=== PATIENT | male | born 1945 | race Caucasian/White ===

== ENCOUNTER 2019-07-29 20:37 | Inpatient (IN) | payer MEDICARE, OTHER ==
[~2019-07-29] VITALS: Ht 175.3 cm; Wt 102.3 kg
[2019-07-29] MEDS ORDERED: NITROGLYCERIN/D5W PMX 250 ML IV PRN (20:40)
[2019-07-29] MEDS ORDERED: DILTIAZEM 5 MG/ML, 5ML ONE (20:42)
[2019-07-29] MEDS ORDERED: NITROGLYCERIN/D5W PMX 250 ML ONE (20:42)
[2019-07-29 20:59] LABS: MEAN CORPUSCULAR HEMOGLOBIN 33.3 pg (27.5-34.5); MEAN CORPUSCULAR HGB CONC 32.3 g/dL (33.2-36.2); MEAN CORPUSCULAR VOLUME 103.1 fL (81-97); MEAN PLATELET VOLUME 7.5 fL (7.4-10.4); PLATELET COUNT 480 x10^3/uL (130-400); RED BLOOD COUNT 3.46 x10^6/uL (4.38-5.82); RED CELL DISTRIBUTION WIDTH 16.8 % (9.4-14.8)
[2019-07-29] MEDS ORDERED: FUROSEMIDE 40 MG/4 ML IVPush ONE (21:00)
[2019-07-29] MEDS ORDERED: MORPHINE SULFATE 4 MG/ML, 1ML IVPush PRN (21:00)
[2019-07-29] MEDS ORDERED: FUROSEMIDE 40 MG/4 ML ONE (21:00)
[2019-07-29] MEDS ORDERED: SODIUM CHLORIDE FLUSH 10ML SYR IVF ONE (21:00)
[2019-07-29] MEDS ORDERED: DILTIAZEM 5 MG/ML, 5ML IV ONE (21:00)
[2019-07-29] MEDS ORDERED: MAGN400T36 PO (21:07)
[2019-07-29] MEDS ORDERED: METF500T17 PO (21:07)
[2019-07-29] MEDS ORDERED: POTA10TA31 PO (21:07)
[2019-07-29] MEDS ORDERED: ALLO300T PO (21:07)
[2019-07-29] MEDS ORDERED: CYAN100028 PO (21:07)
[2019-07-29] MEDS ORDERED: APIX5TAB PO (21:07)
[2019-07-29] MEDS ORDERED: VERA120T13 PO (21:07)
[2019-07-29] MEDS ORDERED: LISI-167 PO (21:07)
[2019-07-29] MEDS ORDERED: GABA600T7 PO (21:07)
[2019-07-29] MEDS ORDERED: SIMV10TA18 PO (21:07)
[2019-07-29] MEDS ORDERED: PANT40TA5 PO (21:07)
[2019-07-29] MEDS ORDERED: FURO20TA3 PO (21:07)
[2019-07-29] MEDS ORDERED: DICLOFENAC (21:07)
[2019-07-29] MEDS ORDERED: CHOL200040 PO (21:07)
[2019-07-29] MEDS ORDERED: MULT-658 PO (21:07)
[2019-07-29] MEDS ORDERED: METO25TA35 PO (21:07)
[2019-07-29 21:09] LABS: INTERNATIONAL NORMALIZED RATIO 1.12 (0.93-1.1); PROTHROMBIN TIME 11.9 Seconds (9.6-11.5)
[2019-07-29 21:11] LABS: ALANINE AMINOTRANSFERASE 10 U/L (12-78); ALBUMIN 2.4 g/dL (3.4-5.0); ANION GAP 8 mmol/L (5-15); CHLORIDE 108 mmol/L (98-107); CREATININE 1.26 mg/dL (0.7-1.3)
[2019-07-29 21:15] LABS: ALKALINE PHOSPHATASE 75 U/L (45-117); BILIRUBIN,TOTAL 0.2 mg/dL (0.2-1.0); T4 (THYROXINE) 5.8 mcg/dL (4.5-12.1); TOTAL PROTEIN 9.9 g/dL (6.4-8.2)
[2019-07-29 21:16] LABS: MD YES
[2019-07-29 21:17] LABS: BAND#(MANUAL) 0.24 x10^3/uL; BANDS%(MANUAL) 1 % (0-7); EOS#(MANUAL) 0.48 x10^3/uL (0.0-0.4); EOS% (MANUAL) 2 % (1-7); LYMPH#(MANUAL) 4.54 x10^3/uL (1-3.4); LYMPHS% (MANUAL) 19 % (22-44); METAMYELOCYTES# (MANUAL) 0.24 x10^3/uL (0-0); METAMYELOCYTES% (MANUAL) 1 % (0-1); MONOS#(MANUAL) 1.43 x10^3/uL (0.3-2.7); MONOS% (MANUAL) 6 % (2-9); NRBC % (MANUAL) 1 % (0-1); SEG#(MANUAL) 16.97 x10^3/uL (1.8-6.8); SEGS% (MANUAL) 71 % (42-75)
[2019-07-29 21:18] LABS: <PLATELET ESTIMATE> INCREASED; <PLT MORPHOLOGY> NORMAL PLT MORPH; <RBC MORPHOLOGY> NORMAL
[2019-07-29] MEDS ORDERED: CEFTRIAXONE PMX 1GM/50ML 50 ML ONE (21:25)
[2019-07-29] MEDS ORDERED: CEFTRIAXONE PMX 1GM/50ML 50 ML IVPB ONE (21:30)
[2019-07-29] MEDS ORDERED: AZITHROMYCIN 500 MG in SODIUM CHLORIDE 0.9% 250 ML IVPB ONE (21:30)
[2019-07-29] MEDS ORDERED: BISACODYL 10 MG SUPP PR PRN (22:30)
[2019-07-29] MEDS ORDERED: POLYETHYLENE GLYCOL 17 GM PACKET PO PRN (22:30)
[2019-07-29] MEDS ORDERED: ONDANSETRON ODT 4 MG PO PRN (22:30)
[2019-07-29] MEDS ORDERED: MAGNESIUM SULFATE PMX 4GM/100M 100 ML IV ONE (22:30)
[2019-07-29] MEDS ORDERED: GUAIFENESIN/DM 200-20MG, 10ML UDC PO PRN (22:30)
[2019-07-29] MEDS ORDERED: hydrALAzine 20 MG/ML, 1ML IVPush PRN (22:30)
[2019-07-29] MEDS ORDERED: NITROGLYCERIN 0.4 MG BOTTLE (25 TABS) SL PRN (22:30)
[2019-07-29 22:53] VITALS: BP 143/89
[2019-07-29] MEDS ORDERED: MAGN64TA7 PO (23:57)
[2019-07-29] MEDS ORDERED: PANT40TA3 PO (23:57)
[2019-07-29] MEDS ORDERED: VERA120T8 PO (23:57)
[2019-07-29] MEDS ORDERED: DICL100G25 TP (23:57)
[2019-07-30] MEDS: SODIUM CHLORIDE FLUSH 10ML SYR IVF SCH ×3 (00:53→21:36)
[2019-07-30 01:31] LABS: MICROSCOPIC AUTO
[2019-07-30 01:46] LABS: CULTURE INDICATED? NO
[2019-07-30 03:30] LABS: MEAN CORPUSCULAR HEMOGLOBIN 33.4 pg (27.5-34.5); MEAN CORPUSCULAR HGB CONC 32.8 g/dL (33.2-36.2); MEAN CORPUSCULAR VOLUME 101.8 fL (81-97); MEAN PLATELET VOLUME 7.5 fL (7.4-10.4); PLATELET COUNT 343 x10^3/uL (130-400); RED CELL DISTRIBUTION WIDTH 16.5 % (9.4-14.8)
[2019-07-30 03:42] LABS: ALANINE AMINOTRANSFERASE 10 U/L (12-78); ALBUMIN 2.1 g/dL (3.4-5.0); ANION GAP 8 mmol/L (5-15); CHLORIDE 108 mmol/L (98-107); MD YES
[2019-07-30 03:43] LABS: BAND#(MANUAL) 0.34 x10^3/uL; BANDS%(MANUAL) 2 % (0-7); LYMPH#(MANUAL) 2.92 x10^3/uL (1-3.4); LYMPHS% (MANUAL) 17 % (22-44); MONOS#(MANUAL) 0.34 x10^3/uL (0.3-2.7); MONOS% (MANUAL) 2 % (2-9); SEG#(MANUAL) 13.59 x10^3/uL (1.8-6.8); SEGS% (MANUAL) 79 % (42-75)
[2019-07-30 03:44] LABS: ANISOCYTOSIS 1+; OVALOCYTES 1+
[2019-07-30 03:45] LABS: <PLATELET ESTIMATE> ADEQUATE; <PLT MORPHOLOGY> NORMAL PLT MORPH
[2019-07-30 03:47] LABS: ALKALINE PHOSPHATASE 62 U/L (45-117); BILIRUBIN,TOTAL 0.3 mg/dL (0.2-1.0); CREATININE 1.12 mg/dL (0.7-1.3); TOTAL PROTEIN 8.5 g/dL (6.4-8.2)
[2019-07-30] MEDS: ACETAMINOPHEN 325 MG TABLET PO PRN ×2 (04:10→16:21)
[2019-07-30 04:49] VITALS: BP 155/72
[2019-07-30 07:10] VITALS: BP 148/79
[2019-07-30] MEDS ORDERED: APIXABAN 5 MG TABLET PO SCH (09:00)
[2019-07-30] MEDS ORDERED: LISINOPRIL 10 MG TABLET PO SCH (09:00)
[2019-07-30] MEDS: SENNA/DOCUSATE TABLET PO SCH (09:00)
[2019-07-30] MEDS ORDERED: metFORMIN 500 MG TABLET PO SCH (09:00)
[2019-07-30] MEDS: FUROSEMIDE 40 MG/4 ML IV SCH ×2 (09:12→16:21)
[2019-07-30] MEDS: ALLOPURINOL 300 MG TABLET PO SCH (09:13)
[2019-07-30] MEDS: GABAPENTIN 300 MG CAPSULE PO SCH ×3 (09:13→21:36)
[2019-07-30] MEDS: MAGNESIUM CHLORIDE 64 MG TABLET.DR PO SCH ×2 (09:13→21:36)
[2019-07-30] MEDS: CHOLECALCIFEROL 1,000 UNIT TABLET PO SCH (09:15)
[2019-07-30] MEDS: CYANOCOBALAMIN 1,000 MCG TABLET PO SCH (09:15)
[2019-07-30] MEDS: ASPIRIN 81 MG TABLET EC PO SCH (09:15)
[2019-07-30] MEDS: METOPROLOL TARTRATE 25 MG TAB PO SCH ×2 (09:16→21:35)
[2019-07-30] MEDS: POTASSIUM CHLORIDE 20 MEQ TAB.ER.PRT PO SCH (09:16)
[2019-07-30] MEDS: VERAPAMIL 120MG TABLET PO SCH ×2 (09:16→21:36)
[2019-07-30] MEDS: PANTOPROZOLE 40MG TABLET PO SCH (09:16)
[2019-07-30] MEDS: MULTIVITAMIN 1 TABLET PO SCH (09:16)
[2019-07-30] MEDS ORDERED: MAGNESIUM SULFATE PMX 2GM/50ML 50 ML IV ONE (10:30)
[2019-07-30] MEDS ORDERED: HEPARIN 25,000 UNITS/250ML PMX 250 ML IV PRN (11:00)
[2019-07-30] MEDS ORDERED: HEPARIN 5,000 UNITS/ML, 1ML IV ONE ×2 (11:00)
[2019-07-30] MEDS ORDERED: HEPARIN 5,000 UNITS/ML, 1ML IV PRN (11:00)
[2019-07-30] MEDS: HEPARIN 25,000 UNITS/250ML PMX 250 ML IV PRN (11:39)
[2019-07-30 12:58] VITALS: BP 138/66
[2019-07-30] MEDS: HEPARIN 5,000 UNITS/ML, 1ML IV PRN (18:18)
[2019-07-30 19:13] VITALS: BP 147/70
[2019-07-30] MEDS ORDERED: SIMVASTATIN 10 MG TABLET PO SCH (21:00)
[2019-07-30 21:30] VITALS: BP 161/72
[2019-07-30] MEDS: ATORVASTATIN 80 MG TABLET PO SCH (21:35)
[2019-07-30] MEDS: LISINOPRIL 10 MG TABLET PO SCH (21:35)
[2019-07-30] MEDS: CEFTRIAXONE PMX 1GM/50ML 50 ML IV SCH (21:36)
[2019-07-30] MEDS: AZITHROMYCIN 500 MG in SODIUM CHLORIDE 0.9% 250 ML IV SCH (23:39)
[2019-07-31 00:35] VITALS: BP 136/72
[2019-07-31] MEDS: HEPARIN 5,000 UNITS/ML, 1ML IV PRN ×3 (01:16→18:07)
[2019-07-31 07:25] VITALS: BP 157/78
[2019-07-31] MEDS ORDERED: MAGNESIUM SULFATE PMX 2GM/50ML 50 ML IV ONE (08:30)
[2019-07-31 08:31] LABS: MEAN CORPUSCULAR HEMOGLOBIN 33.5 pg (27.5-34.5); MEAN CORPUSCULAR HGB CONC 32.5 g/dL (33.2-36.2); MEAN CORPUSCULAR VOLUME 103.1 fL (81-97); MEAN PLATELET VOLUME 8.1 fL (7.4-10.4); PLATELET COUNT 343 x10^3/uL (130-400); RED CELL DISTRIBUTION WIDTH 16.5 % (9.4-14.8)
[2019-07-31 08:33] LABS: ANION GAP 7 mmol/L (5-15); CALCIUM 8.6 mg/dL (8.5-10.1); CHLORIDE 106 mmol/L (98-107); CREATININE 1.01 mg/dL (0.7-1.3)
[2019-07-31] MEDS: FUROSEMIDE 40 MG/4 ML IV SCH ×2 (08:42→18:07)
[2019-07-31 08:45] LABS: BASOPHILS # (AUTO) 0.08 x10^3/uL (0-0.1); BASOPHILS % (AUTO) 1 % (0-1); EOSINOPHILS # (AUTO) 0.25 x10^3/uL (0-0.4); EOSINOPHILS % (AUTO) 2 % (1-7); LYMPHOCYTES % (AUTO) 25 % (22-44); MD SCAN; MONOCYTES # (AUTO) 0.87 x10^3/uL (0.2-0.8); MONOCYTES % (AUTO) 7 % (2-9); NEUTROPHILS # (AUTO) 7.94 x10^3/uL (1.8-6.8); NEUTROPHILS % (AUTO) 65 % (42-75)
[2019-07-31] MEDS: PANTOPROZOLE 40MG TABLET PO SCH (08:47)
[2019-07-31] MEDS: POTASSIUM CHLORIDE 20 MEQ TAB.ER.PRT PO SCH (08:47)
[2019-07-31] MEDS: ASPIRIN 81 MG TABLET EC PO SCH (08:48)
[2019-07-31] MEDS: CHOLECALCIFEROL 1,000 UNIT TABLET PO SCH (08:48)
[2019-07-31] MEDS: LISINOPRIL 10 MG TABLET PO SCH (08:48)
[2019-07-31] MEDS: GABAPENTIN 300 MG CAPSULE PO SCH ×3 (08:48→21:00)
[2019-07-31] MEDS: CYANOCOBALAMIN 1,000 MCG TABLET PO SCH (08:48)
[2019-07-31] MEDS: MULTIVITAMIN 1 TABLET PO SCH (08:48)
[2019-07-31] MEDS: METOPROLOL TARTRATE 25 MG TAB PO SCH (08:48)
[2019-07-31] MEDS: VERAPAMIL 120MG TABLET PO SCH (08:48)
[2019-07-31] MEDS: ALLOPURINOL 300 MG TABLET PO SCH (08:48)
[2019-07-31] MEDS: SODIUM CHLORIDE FLUSH 10ML SYR IVF SCH ×2 (08:49→23:26)
[2019-07-31] MEDS: SODIUM CHLORIDE 0.9% 1,000 ML IV SCH ×4 (08:49→23:28)
[2019-07-31] MEDS: HEPARIN 25,000 UNITS/250ML PMX 250 ML IV PRN (08:57)
[2019-07-31] MEDS: MAGNESIUM CHLORIDE 64 MG TABLET.DR PO SCH ×2 (09:00→21:00)
[2019-07-31] MEDS: SENNA/DOCUSATE TABLET PO SCH (09:00)
[2019-07-31] MEDS: ACETAMINOPHEN 325 MG TABLET PO PRN (12:02)
[2019-07-31 13:09] VITALS: BP 149/74
[2019-07-31] MEDS ORDERED: MIDAZOLAM 1 MG/ML, 5ML ONE (13:58)
[2019-07-31] MEDS ORDERED: FENTANYL PF 100 MCG/2ML ONE (13:58)
[2019-07-31] MEDS ORDERED: HEPARIN 1,000 UNITS/ML, 10ML ONE (13:58)
[2019-07-31] MEDS ORDERED: LIDOCAINE-MPF 1%, 5ML ONE (13:58)
[2019-07-31] MEDS ORDERED: VERAPAMIL 2.5 MG/ML, 2ML ONE (13:58)
[2019-07-31] MEDS ORDERED: BIVALIRUDIN 250 MG ONE (13:59)
[2019-07-31] MEDS: CARVEDILOL 12.5 MG TABLET PO SCH (18:07)
[2019-07-31 18:58] VITALS: BP 158/66
[2019-07-31] MEDS ORDERED: MAG SULFATE ONE (20:18)
[2019-07-31] MEDS ORDERED: CODE BLUE RESPONSE XX ONE (20:18)
[2019-07-31] MEDS ORDERED: SUCCINYLCHOLINE 20 MG/ML, 10ML ONE (20:18)
[2019-07-31] MEDS ORDERED: ETOMIDATE 20 MG/10 ML ONE (20:18)
[2019-07-31] MEDS ORDERED: AMIODARONE 50 MG/ML, 3ML ONE (20:18)
[2019-07-31] MEDS ORDERED: PROPOFOL 100 ML IV PRN ×2 (20:30→20:56)
[2019-07-31] MEDS ORDERED: AMIODARONE 450 MG in DEXTROSE 5% 241 ML IV PRN (20:30)
[2019-07-31] MEDS ORDERED: AMIODARONE 150 MG in DEXTROSE 5% 100 ML IV ONE (20:30)
[2019-07-31] MEDS: ATORVASTATIN 80 MG TABLET PO SCH (21:00)
[2019-07-31] MEDS ORDERED: FENTANYL PF 100 MCG/2ML IVPush PRN (21:00)
[2019-07-31] MEDS ORDERED: LISINOPRIL 20 MG TABLET PO SCH (21:00)
[2019-07-31] MEDS ORDERED: LIDOCAINE-MPF 1%, 2ML ENDO PRN (21:00)
[2019-07-31] MEDS ORDERED: PHARMACY MAY ADJ FOR RENAL FX MC SCH (21:00)
[2019-08-01] MEDS: CEFTRIAXONE PMX 1GM/50ML 50 ML IV SCH ×2 (00:31→21:34)
[2019-08-01] MEDS ORDERED: DOPAMINE/D5W PMX 250 ML ONE (00:53)
[2019-08-01] MEDS ORDERED: DOPAMINE/D5W PMX 250 ML IV PRN (01:00)
[2019-08-01] MEDS: AZITHROMYCIN 500 MG in SODIUM CHLORIDE 0.9% 250 ML IV SCH ×2 (01:19→22:05)
[2019-08-01] MEDS: HEPARIN 5,000 UNITS/ML, 1ML IV PRN ×3 (02:59→16:41)
[2019-08-01 04:45] LABS: BASOPHILS # (AUTO) 0.07 x10^3/uL (0-0.1); BASOPHILS % (AUTO) 1 % (0-1); EOSINOPHILS # (AUTO) 0.26 x10^3/uL (0-0.4); EOSINOPHILS % (AUTO) 2 % (1-7); LYMPHOCYTES # (AUTO) 2.24 x10^3/uL (1-3.4); LYMPHOCYTES % (AUTO) 17 % (22-44); MD NO; MEAN CORPUSCULAR HEMOGLOBIN 33.2 pg (27.5-34.5); MEAN CORPUSCULAR HGB CONC 32.5 g/dL (33.2-36.2); MEAN CORPUSCULAR VOLUME 102.3 fL (81-97); MEAN PLATELET VOLUME 7.5 fL (7.4-10.4); MONOCYTES # (AUTO) 0.91 x10^3/uL (0.2-0.8); MONOCYTES % (AUTO) 7 % (2-9); NEUTROPHILS # (AUTO) 10.09 x10^3/uL (1.8-6.8); NEUTROPHILS % (AUTO) 74 % (42-75); PLATELET COUNT 338 x10^3/uL (130-400); RED CELL DISTRIBUTION WIDTH 16.7 % (9.4-14.8)
[2019-08-01 04:53] LABS: ANION GAP 5 mmol/L (5-15); CALCIUM 8.6 mg/dL (8.5-10.1); CHLORIDE 109 mmol/L (98-107); CREATININE 1.23 mg/dL (0.7-1.3)
[2019-08-01] MEDS: CARVEDILOL 12.5 MG TABLET PO SCH (05:48)
[2019-08-01] MEDS: SODIUM CHLORIDE 0.9% 1,000 ML IV SCH ×4 (07:02→23:02)
[2019-08-01] MEDS: HEPARIN 25,000 UNITS/250ML PMX 250 ML IV PRN ×2 (07:06→22:13)
[2019-08-01] MEDS ORDERED: FUROSEMIDE 20 MG TABLET PO SCH (08:00)
[2019-08-01] MEDS: MAGNESIUM CHLORIDE 64 MG TABLET.DR PO SCH ×2 (08:04→21:34)
[2019-08-01] MEDS: SODIUM CHLORIDE FLUSH 10ML SYR IVF SCH ×3 (08:35→21:34)
[2019-08-01] MEDS ORDERED: FUROSEMIDE 20 MG/2 ML ONE (09:14)
[2019-08-01] MEDS: ACETAMINOPHEN 325 MG TABLET PO PRN ×2 (09:21→15:17)
[2019-08-01] MEDS ORDERED: FUROSEMIDE 20 MG/2 ML IVPush ONE (09:30)
[2019-08-01] MEDS: ASPIRIN 81 MG TABLET EC PO SCH (10:02)
[2019-08-01] MEDS: SENNA/DOCUSATE TABLET PO SCH (10:02)
[2019-08-01] MEDS: ALLOPURINOL 300 MG TABLET PO SCH (10:02)
[2019-08-01] MEDS: MULTIVITAMIN 1 TABLET PO SCH (10:02)
[2019-08-01] MEDS: GABAPENTIN 300 MG CAPSULE PO SCH ×3 (10:02→21:34)
[2019-08-01] MEDS: CYANOCOBALAMIN 1,000 MCG TABLET PO SCH (10:02)
[2019-08-01] MEDS: CHOLECALCIFEROL 1,000 UNIT TABLET PO SCH (10:02)
[2019-08-01] MEDS: POTASSIUM CHLORIDE 20 MEQ TAB.ER.PRT PO SCH (10:02)
[2019-08-01] MEDS: PANTOPROZOLE 40MG TABLET PO SCH (10:02)
[2019-08-01] MEDS ORDERED: INSULIN LISPRO 100 UNITS/ML, PEN SQ-INSULIN SCH (17:00)
[2019-08-01] MEDS ORDERED: CHLORHEXIDINE 15 ML UDC MM PRN (17:00)
[2019-08-01 17:51] LABS: BASOPHILS % (AUTO) 1 % (0-1); EOSINOPHILS # (AUTO) 0.22 x10^3/uL (0-0.4); EOSINOPHILS % (AUTO) 2 % (1-7); LYMPHOCYTES # (AUTO) 2.32 x10^3/uL (1-3.4); LYMPHOCYTES % (AUTO) 21 % (22-44); MD NO; MEAN CORPUSCULAR HEMOGLOBIN 33.6 pg (27.5-34.5); MEAN CORPUSCULAR HGB CONC 32.9 g/dL (33.2-36.2); MEAN PLATELET VOLUME 7.4 fL (7.4-10.4); MONOCYTES % (AUTO) 7 % (2-9); NEUTROPHILS # (AUTO) 7.53 x10^3/uL (1.8-6.8); NEUTROPHILS % (AUTO) 69 % (42-75); PLATELET COUNT 308 x10^3/uL (130-400); RED BLOOD COUNT 2.65 x10^6/uL (4.38-5.82); RED CELL DISTRIBUTION WIDTH 16.6 % (9.4-14.8)
[2019-08-01 18:03] LABS: ALANINE AMINOTRANSFERASE 14 U/L (12-78); ALBUMIN 1.8 g/dL (3.4-5.0); ANION GAP 6 mmol/L (5-15); CALCIUM 8.3 mg/dL (8.5-10.1); CHLORIDE 110 mmol/L (98-107); CREATININE 1.21 mg/dL (0.7-1.3)
[2019-08-01 18:05] LABS: INTERNATIONAL NORMALIZED RATIO 1.07 (0.93-1.1); PROTHROMBIN TIME 11.4 Seconds (9.6-11.5)
[2019-08-01 18:06] LABS: ALKALINE PHOSPHATASE 69 U/L (45-117); BILIRUBIN,TOTAL 0.2 mg/dL (0.2-1.0); TOTAL PROTEIN 7.6 g/dL (6.4-8.2)
[2019-08-01 18:57] LABS: MICROSCOPIC INDICATED
[2019-08-01] MEDS ORDERED: MUPIROCIN OINT 2%, 22GM TP SCH (21:00)
[2019-08-01] MEDS: ATORVASTATIN 80 MG TABLET PO SCH (21:34)
[2019-08-02] MEDS: SODIUM CHLORIDE 0.9% 1,000 ML IV SCH ×2 (02:00→05:04)
[2019-08-02] MEDS: ACETAMINOPHEN 325 MG TABLET PO PRN (04:45)
[2019-08-02] MEDS ORDERED: METOPROLOL TARTRATE 25 MG TAB PO ONE (05:00)
[2019-08-02 05:09] LABS: BASOPHILS # (AUTO) 0.05 x10^3/uL (0-0.1); BASOPHILS % (AUTO) 1 % (0-1); EOSINOPHILS # (AUTO) 0.27 x10^3/uL (0-0.4); EOSINOPHILS % (AUTO) 3 % (1-7); LYMPHOCYTES # (AUTO) 2.31 x10^3/uL (1-3.4); LYMPHOCYTES % (AUTO) 23 % (22-44); MD NO; MEAN CORPUSCULAR HEMOGLOBIN 33.5 pg (27.5-34.5); MEAN CORPUSCULAR HGB CONC 32.6 g/dL (33.2-36.2); MEAN CORPUSCULAR VOLUME 102.8 fL (81-97); MEAN PLATELET VOLUME 7.3 fL (7.4-10.4); MONOCYTES % (AUTO) 8 % (2-9); NEUTROPHILS # (AUTO) 6.79 x10^3/uL (1.8-6.8); NEUTROPHILS % (AUTO) 67 % (42-75); PLATELET COUNT 303 x10^3/uL (130-400); RED CELL DISTRIBUTION WIDTH 16.4 % (9.4-14.8)
[2019-08-02 05:17] LABS: ALBUMIN 1.8 g/dL (3.4-5.0); ANION GAP 3 mmol/L (5-15); CALCIUM 8.6 mg/dL (8.5-10.1); CHLORIDE 112 mmol/L (98-107)
[2019-08-02 05:20] LABS: ALANINE AMINOTRANSFERASE 15 U/L (12-78); ALKALINE PHOSPHATASE 63 U/L (45-117); BILIRUBIN,TOTAL 0.4 mg/dL (0.2-1.0); TOTAL PROTEIN 7.7 g/dL (6.4-8.2)
[2019-08-02] MEDS ORDERED: PAPAVERINE 30 MG/ML, 2ML ONE (06:53)
[2019-08-02] MEDS ORDERED: HEPARIN 1,000 UNITS/ML, 10ML ONE (06:53)
[2019-08-02] MEDS ORDERED: ALBUMIN HUMAN 5% 500 ML IV PRN (07:30)
[2019-08-02] MEDS ORDERED: EPINEPHRINE 5 MG in SODIUM CHLORIDE 0.9% 245 ML IV PRN ×2 (07:30→13:00)
[2019-08-02] MEDS ORDERED: MANNITOL PMX 20% 500 ML IVPB PRN (07:30)
[2019-08-02] MEDS ORDERED: DEXMEDETOMIDINE 200 MCG in SODIUM CHLORIDE 0.9% 48 ML IV PRN (07:30)
[2019-08-02] MEDS ORDERED: VANCOMYCIN 1,600 MG in SODIUM CHLORIDE 0.9% 250 ML IVPB PRN (07:30)
[2019-08-02] MEDS ORDERED: CEFUROXIME 1.5 GM in SODIUM CHLORIDE 0.9% 50 ML IVPB PRN (07:30)
[2019-08-02] MEDS ORDERED: PHENYLEPHRINE 50 MG in SODIUM CHLORIDE 0.9% 245 ML IV PRN ×2 (07:30→13:00)
[2019-08-02] MEDS ORDERED: POTASSIUM CHLORIDE 80 MEQ, SODIUM BICARBONATE 8.4% 10 MEQ, MAGNESIUM SULFATE 0.5 GM, LI... IV PRN (07:30)
[2019-08-02] MEDS ORDERED: REGULAR INSULIN 100 UNITS in SODIUM CHLORIDE 0.9% 99 ML IV PRN ×2 (07:30→13:00)
[2019-08-02] MEDS: POTASSIUM CHLORIDE 20 MEQ TAB.ER.PRT PO SCH (08:00)
[2019-08-02] MEDS ORDERED: MIDAZOLAM 10MG/2 ML ONE (08:30)
[2019-08-02] MEDS ORDERED: FENTANYL PF 250 MCG/5ML ONE ×4 (08:30→08:31)
[2019-08-02] MEDS ORDERED: AMINOCAPROIC ACID 250 MG/ML, 20ML ONE ×2 (08:32→08:33)
[2019-08-02] MEDS ORDERED: PROPOFOL 10 MG/ML, 20ML ONE (08:35)
[2019-08-02] MEDS ORDERED: ROCURONIUM 10MG/ML,5ML ONE ×3 (08:51→12:28)
[2019-08-02] MEDS ORDERED: EPINEPHRINE 1 MG/ML, 1ML ONE (08:51)
[2019-08-02] MEDS ORDERED: CALCIUM CHLORIDE 10%, 10ML SYR ONE (08:51)
[2019-08-02] MEDS ORDERED: PHENYLEPHRINE 10 MG/ML ONE (08:51)
[2019-08-02] MEDS: SODIUM CHLORIDE FLUSH 10ML SYR IVF SCH ×3 (08:54→20:48)
[2019-08-02] MEDS: GABAPENTIN 300 MG CAPSULE PO SCH (08:54)
[2019-08-02] MEDS: ASPIRIN 81 MG TABLET EC PO SCH (08:54)
[2019-08-02] MEDS: PANTOPROZOLE 40MG TABLET PO SCH (08:55)
[2019-08-02] MEDS: CHOLECALCIFEROL 1,000 UNIT TABLET PO SCH (08:55)
[2019-08-02] MEDS: CYANOCOBALAMIN 1,000 MCG TABLET PO SCH (08:55)
[2019-08-02] MEDS: MULTIVITAMIN 1 TABLET PO SCH (08:55)
[2019-08-02] MEDS: ALLOPURINOL 300 MG TABLET PO SCH (08:55)
[2019-08-02] MEDS: SENNA/DOCUSATE TABLET PO SCH (08:55)
[2019-08-02] MEDS: MAGNESIUM CHLORIDE 64 MG TABLET.DR PO SCH (08:55)
[2019-08-02] MEDS: DOCUSATE 100 MG CAPSULE PO SCH ×2 (09:00→20:50)
[2019-08-02] MEDS ORDERED: CYANOCOBALAMIN 1,000 MCG TABLET PO SCH (09:00)
[2019-08-02] MEDS ORDERED: PAPAVERINE 30 MG/ML, 2ML IV ONE (10:09)
[2019-08-02] MEDS ORDERED: HEPARIN 1,000 UNITS/ML, 10ML IV ONE (10:10)
[2019-08-02] MEDS ORDERED: PROTAMINE SULFATE 10 MG/ML, 25ML ONE (12:10)
[2019-08-02] MEDS ORDERED: AMIODARONE 50 MG/ML, 3ML ONE ×3 (12:36→13:33)
[2019-08-02] MEDS ORDERED: HYDROcodone/APAP 5/325 TABLET PO PRN (13:00)
[2019-08-02] MEDS ORDERED: MIDAZOLAM 1 MG/ML, 5ML IVPush PRN (13:00)
[2019-08-02] MEDS ORDERED: BISACODYL 5 MG EC TABLET PO PRN (13:00)
[2019-08-02] MEDS ORDERED: VASOPRESSIN 20 UNIT in SODIUM CHLORIDE 0.9% 99 ML IV PRN (13:00)
[2019-08-02] MEDS ORDERED: DEXTROSE 50%, 50ML SYRINGE IVPush PRN (13:00)
[2019-08-02] MEDS ORDERED: INSULIN REGULAR 100 UNITS/ML, 3ML VIAL IVPush PRN (13:00)
[2019-08-02] MEDS ORDERED: DOBUTAMINE 250 MG in SODIUM CHLORIDE 0.9% 230 ML IV PRN (13:00)
[2019-08-02] MEDS ORDERED: SODIUM BICARB 8.4%, 50ML SYRINGE IV PRN (13:00)
[2019-08-02] MEDS ORDERED: NITROGLYCERIN/D5W PMX 250 ML IV PRN (13:00)
[2019-08-02] MEDS ORDERED: ACETAMINOPHEN 650 MG SUPP PR PRN (13:00)
[2019-08-02] MEDS ORDERED: PROCHLORPERAZINE 5 MG/ML, 2ML IVPush PRN (13:00)
[2019-08-02] MEDS ORDERED: BISACODYL 10 MG SUPP PR PRN (13:00)
[2019-08-02] MEDS ORDERED: OXYcodone IR 5MG TABLET PO PRN (13:00)
[2019-08-02] MEDS ORDERED: LACTATED RINGERS 1,000 ML IV PRN (13:00)
[2019-08-02] MEDS ORDERED: DEXTROSE 4 GM TAB.CHEW PO PRN (13:00)
[2019-08-02] MEDS ORDERED: GLUCAGON 1 MG IM PRN (13:00)
[2019-08-02] MEDS ORDERED: SODIUM CHLORIDE 0.9% 1,000 ML IV PRN (13:00)
[2019-08-02] MEDS ORDERED: ONDANSETRON 2MG/ML, 2ML IVPush PRN (13:00)
[2019-08-02] MEDS ORDERED: SODIUM BICARB 8.4%, 50ML SYRINGE ONE ×2 (13:48)
[2019-08-02] MEDS: KSCALE TO 4.5 IV SCH ×2 (14:00→20:00)
[2019-08-02 14:47] LABS: GLUCOSE BY BLOOD GAS ANALYZER 144 mg/dL (70-110); HEMOGLOBIN BY BLOOD GAS ANALYZ 10.6 g/dL (14.0-18.0); POTASSIUM BY BLOOD GAS ANALYZR 3.7 mmol/L (3.6-5.5)
[2019-08-02] MEDS ORDERED: SODIUM BICARBONATE 1 MEQ/ML, 50ML VIAL ONE (15:01)
[2019-08-02] MEDS ORDERED: LIDOCAINE-MPF 2% ,5ML ONE (15:02)
[2019-08-02] MEDS ORDERED: HEPARIN 1,000 UNITS/ML, 30ML ONE (15:02)
[2019-08-02] MEDS ORDERED: methylPREDNISolone SOD SUCC 125 MG/2 ML ONE (15:02)
[2019-08-02] MEDS ORDERED: ALBUMIN HUMAN 25% 50 ML ONE (15:03)
[2019-08-02] MEDS: MAGNESIUM SULFATE 1 GM in SODIUM CHLORIDE 0.9% 100 ML IVPB SCH (15:12)
[2019-08-02] MEDS: MORPHINE SULFATE 4 MG/ML, 1ML IVPush PRN ×4 (15:13→22:17)
[2019-08-02] MEDS: DEXMEDETOMIDINE 200 MCG in SODIUM CHLORIDE 0.9% 48 ML IV PRN ×4 (15:18→23:32)
[2019-08-02] MEDS: INSULIN LISPRO 100 UNITS/ML, PEN SQ-INSULIN SCH ×2 (16:00→20:50)
[2019-08-02] MEDS ORDERED: POTASSIUM CHLORIDE PMX 100 ML IV ONE (16:30)
[2019-08-02] MEDS ORDERED: AMIODARONE 450 MG in DEXTROSE 5% 241 ML IV ONE (18:27)
[2019-08-02] MEDS ORDERED: FILTER 0.22 MICRON IV PRN (19:00)
[2019-08-02] MEDS: AMIODARONE 450 MG in DEXTROSE 5% 241 ML IV SCH (19:14)
[2019-08-02] MEDS ORDERED: CALCIUM CHLORIDE 10%, 10ML SYR IVPush ONE (20:30)
[2019-08-02] MEDS ORDERED: FUROSEMIDE 20 MG/2 ML IV STA (20:30)
[2019-08-02] MEDS: MUPIROCIN OINT 2%, 22GM NAS SCH (20:49)
[2019-08-02] MEDS: VANCOMYCIN 1,700 MG in SODIUM CHLORIDE 0.9% 250 ML IVPB SCH (20:49)
[2019-08-02] MEDS: CEFUROXIME 1.5 GM in SODIUM CHLORIDE 0.9% 50 ML IVPB SCH (20:49)
[2019-08-02] MEDS ORDERED: CALCIUM CHLORIDE 13.6 MEQ in SODIUM CHLORIDE 0.9% 100 ML IV ONE (21:00)
[2019-08-03] MEDS: KSCALE TO 4.5 IV SCH ×2 (02:00→08:00)
[2019-08-03] MEDS: AMIODARONE 450 MG in DEXTROSE 5% 241 ML IV SCH (02:40)
[2019-08-03 03:33] LABS: BASOPHILS # (AUTO) 0.02 x10^3/uL (0-0.1); BASOPHILS % (AUTO) 0 % (0-1); EOSINOPHILS # (AUTO) 0.01 x10^3/uL (0-0.4); EOSINOPHILS % (AUTO) 0 % (1-7); LYMPHOCYTES # (AUTO) 1.53 x10^3/uL (1-3.4); LYMPHOCYTES % (AUTO) 11 % (22-44); MD NO; MEAN CORPUSCULAR VOLUME 100.3 fL (81-97); MEAN PLATELET VOLUME 7.6 fL (7.4-10.4); MONOCYTES # (AUTO) 1.16 x10^3/uL (0.2-0.8); MONOCYTES % (AUTO) 8 % (2-9); NEUTROPHILS # (AUTO) 11.83 x10^3/uL (1.8-6.8); NEUTROPHILS % (AUTO) 81 % (42-75); PLATELET COUNT 208 x10^3/uL (130-400); RED BLOOD COUNT 2.76 x10^6/uL (4.38-5.82); RED CELL DISTRIBUTION WIDTH 16.5 % (9.4-14.8)
[2019-08-03] MEDS: MORPHINE SULFATE 4 MG/ML, 1ML IVPush PRN ×2 (03:37→06:19)
[2019-08-03 03:42] LABS: ANION GAP 5 mmol/L (5-15); CHLORIDE 119 mmol/L (98-107); CREATININE 1.12 mg/dL (0.7-1.3)
[2019-08-03] MEDS: INSULIN LISPRO 100 UNITS/ML, PEN SQ-INSULIN SCH ×4 (04:28→21:00)
[2019-08-03 05:50] LABS: INTERNATIONAL NORMALIZED RATIO 1.15 (0.93-1.1); PROTHROMBIN TIME 12.2 Seconds (9.6-11.5)
[2019-08-03] MEDS: VANCOMYCIN 1,700 MG in SODIUM CHLORIDE 0.9% 250 ML IVPB SCH (08:21)
[2019-08-03] MEDS: CEFUROXIME 1.5 GM in SODIUM CHLORIDE 0.9% 50 ML IVPB SCH (08:21)
[2019-08-03] MEDS: DOCUSATE 100 MG CAPSULE PO SCH ×2 (09:08→20:57)
[2019-08-03] MEDS: ASPIRIN 81 MG TABLET EC PO SCH (09:08)
[2019-08-03] MEDS: METOPROLOL TARTRATE 25 MG TAB PO/NG SCH ×2 (09:09→20:58)
[2019-08-03] MEDS: ACETAMINOPHEN 325 MG TABLET PO PRN ×2 (09:11→17:54)
[2019-08-03] MEDS ORDERED: FUROSEMIDE 20 MG/2 ML IV SCH (09:30)
[2019-08-03] MEDS ORDERED: LISINOPRIL 10 MG TABLET PO SCH (09:30)
[2019-08-03] MEDS: GABAPENTIN 300 MG CAPSULE PO SCH ×3 (09:44→20:57)
[2019-08-03] MEDS: MUPIROCIN OINT 2%, 22GM NAS SCH ×2 (09:44→20:58)
[2019-08-03] MEDS: ALLOPURINOL 300 MG TABLET PO SCH (09:45)
[2019-08-03] MEDS: SODIUM CHLORIDE FLUSH 10ML SYR IVF SCH ×2 (09:46→21:03)
[2019-08-03] MEDS: MAGNESIUM SULFATE 1 GM in SODIUM CHLORIDE 0.9% 100 ML IVPB SCH (14:40)
[2019-08-03] MEDS: ATORVASTATIN 80 MG TABLET PO SCH (20:57)
[2019-08-03] MEDS: CHLORHEXIDINE 15 ML UDC MM SCH (20:57)
[2019-08-03] MEDS: AMIODARONE 200 MG TABLET PO SCH (21:03)
[2019-08-04 04:57] LABS: INTERNATIONAL NORMALIZED RATIO 1.19 (0.93-1.1); PROTHROMBIN TIME 12.6 Seconds (9.6-11.5)
[2019-08-04 04:58] LABS: ANION GAP 7 mmol/L (5-15); CALCIUM 9.3 mg/dL (8.5-10.1); CHLORIDE 111 mmol/L (98-107); CREATININE 1.41 mg/dL (0.7-1.3)
[2019-08-04] MEDS: AMIODARONE 450 MG in DEXTROSE 5% 241 ML IV PRN ×2 (04:58→14:06)
[2019-08-04] MEDS ORDERED: AMIODARONE 150 MG in DEXTROSE 5% 100 ML IV ONE (05:00)
[2019-08-04] MEDS ORDERED: FILTER 0.22 MICRON IV PRN (05:00)
[2019-08-04 05:01] LABS: MEAN CORPUSCULAR HEMOGLOBIN 32.9 pg (27.5-34.5); MEAN CORPUSCULAR HGB CONC 32.6 g/dL (33.2-36.2); MEAN PLATELET VOLUME 7.8 fL (7.4-10.4); PLATELET COUNT 259 x10^3/uL (130-400); RED BLOOD COUNT 3.03 x10^6/uL (4.38-5.82); RED CELL DISTRIBUTION WIDTH 17.2 % (9.4-14.8)
[2019-08-04 05:19] LABS: MD YES
[2019-08-04 05:20] LABS: <PLATELET ESTIMATE> ADEQUATE; <PLT MORPHOLOGY> NORMAL PLT MORPH; <RBC MORPHOLOGY> NORMAL; BAND#(MANUAL) 1.33 x10^3/uL; BANDS%(MANUAL) 7 % (0-7); LYMPH#(MANUAL) 1.71 x10^3/uL (1-3.4); LYMPHS% (MANUAL) 9 % (22-44); MONOS#(MANUAL) 0.76 x10^3/uL (0.3-2.7); MONOS% (MANUAL) 4 % (2-9); SEGS% (MANUAL) 80 % (42-75)
[2019-08-04] MEDS: INSULIN LISPRO 100 UNITS/ML, PEN SQ-INSULIN SCH ×5 (06:14→22:02)
[2019-08-04] MEDS: ACETAMINOPHEN 325 MG TABLET PO PRN ×3 (07:32→22:02)
[2019-08-04] MEDS ORDERED: METOPROLOL TARTRATE 25 MG TAB PO/NG SCH (09:00)
[2019-08-04] MEDS ORDERED: VERAPAMIL ER 120MG TABLET.ER PO SCH (09:00)
[2019-08-04] MEDS: ENOXAPARIN 40 MG/0.4 ML SQ SCH (09:00)
[2019-08-04] MEDS: AMIODARONE 200 MG TABLET PO SCH ×2 (09:00→22:03)
[2019-08-04] MEDS: CARVEDILOL 6.25 MG TABLET PO SCH ×3 (09:30→18:02)
[2019-08-04] MEDS: ASPIRIN 81 MG TABLET EC PO SCH (10:00)
[2019-08-04] MEDS: SODIUM CHLORIDE FLUSH 10ML SYR IVF SCH ×2 (10:00→22:03)
[2019-08-04] MEDS: ALLOPURINOL 300 MG TABLET PO SCH (10:00)
[2019-08-04] MEDS: CHLORHEXIDINE 15 ML UDC MM SCH ×2 (10:00→22:02)
[2019-08-04] MEDS: DOCUSATE 100 MG CAPSULE PO SCH ×2 (10:00→22:02)
[2019-08-04] MEDS: GABAPENTIN 300 MG CAPSULE PO SCH ×3 (10:01→22:02)
[2019-08-04] MEDS: MUPIROCIN OINT 2%, 22GM NAS SCH ×2 (10:01→22:03)
[2019-08-04] MEDS ORDERED: ALBUMIN HUMAN 5% 500 ML IV ONE (13:30)
[2019-08-04] MEDS: MAGNESIUM SULFATE 1 GM in SODIUM CHLORIDE 0.9% 100 ML IVPB SCH (14:07)
[2019-08-04] MEDS: ATORVASTATIN 80 MG TABLET PO SCH (22:02)
[2019-08-05] MEDS: AMIODARONE 450 MG in DEXTROSE 5% 241 ML IV PRN (04:04)
[2019-08-05 04:33] LABS: ANION GAP 6 mmol/L (5-15); CALCIUM 8.7 mg/dL (8.5-10.1); CHLORIDE 108 mmol/L (98-107); CREATININE 1.99 mg/dL (0.7-1.3)
[2019-08-05 04:40] LABS: MEAN CORPUSCULAR HEMOGLOBIN 33.1 pg (27.5-34.5); MEAN CORPUSCULAR HGB CONC 32.9 g/dL (33.2-36.2); MEAN CORPUSCULAR VOLUME 100.7 fL (81-97); MEAN PLATELET VOLUME 7.8 fL (7.4-10.4); PLATELET COUNT 230 x10^3/uL (130-400); RED BLOOD COUNT 2.75 x10^6/uL (4.38-5.82); RED CELL DISTRIBUTION WIDTH 16.2 % (9.4-14.8)
[2019-08-05 05:09] LABS: MD YES
[2019-08-05 05:15] LABS: <PLATELET ESTIMATE> ADEQUATE; <PLT MORPHOLOGY> NORMAL PLT MORPH; ANISOCYTOSIS 1+; BAND#(MANUAL) 0.43 x10^3/uL; BANDS%(MANUAL) 3 % (0-7); LYMPHS% (MANUAL) 16 % (22-44); MONOS#(MANUAL) 0.58 x10^3/uL (0.3-2.7); MONOS% (MANUAL) 4 % (2-9); MYELOCYTES# (MANUAL) 0.14 x10^3/uL (0-0); MYELOCYTES% (MANUAL) 1 % (0-0); POLYCHROMASIA 1+; SEG#(MANUAL) 10.94 x10^3/uL (1.8-6.8); SEGS% (MANUAL) 76 % (42-75)
[2019-08-05] MEDS: CARVEDILOL 6.25 MG TABLET PO SCH ×2 (05:45→17:48)
[2019-08-05] MEDS: INSULIN LISPRO 100 UNITS/ML, PEN SQ-INSULIN SCH ×4 (08:27→20:43)
[2019-08-05] MEDS ORDERED: SODIUM CHLORIDE 0.9% 1,000 ML IV SCH (08:30)
[2019-08-05] MEDS: CLOPIDOGREL 75 MG TABLET PO SCH (09:00)
[2019-08-05] MEDS: ENOXAPARIN 40 MG/0.4 ML SQ SCH (09:00)
[2019-08-05] MEDS: DOCUSATE 100 MG CAPSULE PO SCH ×2 (09:22→21:10)
[2019-08-05] MEDS: GABAPENTIN 300 MG CAPSULE PO SCH ×3 (09:22→21:09)
[2019-08-05] MEDS: CHLORHEXIDINE 15 ML UDC MM SCH (09:22)
[2019-08-05] MEDS: SODIUM CHLORIDE 0.9% 1,000 ML IV SCH ×2 (09:22→23:02)
[2019-08-05] MEDS: AMIODARONE 200 MG TABLET PO SCH ×2 (09:22→21:09)
[2019-08-05] MEDS: ALLOPURINOL 300 MG TABLET PO SCH (09:22)
[2019-08-05] MEDS: ACETAMINOPHEN 325 MG TABLET PO PRN (09:23)
[2019-08-05] MEDS: ASPIRIN 81 MG TABLET EC PO SCH (09:23)
[2019-08-05] MEDS: MUPIROCIN OINT 2%, 22GM NAS SCH ×2 (09:23→21:11)
[2019-08-05] MEDS: SODIUM CHLORIDE FLUSH 10ML SYR IVF SCH ×2 (09:23→23:01)
[2019-08-05] MEDS: ATORVASTATIN 80 MG TABLET PO SCH (21:10)
[2019-08-06 05:20] LABS: MEAN CORPUSCULAR HEMOGLOBIN 33.4 pg (27.5-34.5); MEAN CORPUSCULAR HGB CONC 33.3 g/dL (33.2-36.2); MEAN CORPUSCULAR VOLUME 100.2 fL (81-97); MEAN PLATELET VOLUME 7.9 fL (7.4-10.4); PLATELET COUNT 238 x10^3/uL (130-400); RED BLOOD COUNT 2.81 x10^6/uL (4.38-5.82); RED CELL DISTRIBUTION WIDTH 16.1 % (9.4-14.8)
[2019-08-06 05:30] LABS: ANION GAP 7 mmol/L (5-15); CALCIUM 8.4 mg/dL (8.5-10.1); CHLORIDE 111 mmol/L (98-107); CREATININE 1.94 mg/dL (0.7-1.3); TRIGLYCERIDES 108 mg/dL (50-200)
[2019-08-06 05:51] LABS: BASOPHILS # (AUTO) 0.02 x10^3/uL (0-0.1); BASOPHILS % (AUTO) 0 % (0-1); EOSINOPHILS # (AUTO) 0.14 x10^3/uL (0-0.4); EOSINOPHILS % (AUTO) 1 % (1-7); LYMPHOCYTES # (AUTO) 1.64 x10^3/uL (1-3.4); LYMPHOCYTES % (AUTO) 12 % (22-44); MD SCAN; MONOCYTES # (AUTO) 0.97 x10^3/uL (0.2-0.8); MONOCYTES % (AUTO) 7 % (2-9); NEUTROPHILS # (AUTO) 11.15 x10^3/uL (1.8-6.8); NEUTROPHILS % (AUTO) 80 % (42-75)
[2019-08-06] MEDS: CARVEDILOL 6.25 MG TABLET PO SCH (05:56)
[2019-08-06] MEDS: INSULIN LISPRO 100 UNITS/ML, PEN SQ-INSULIN SCH ×4 (07:00→20:29)
[2019-08-06 08:12] LABS: ALBUMIN 1.9 g/dL (3.4-5.0); BILIRUBIN, DIRECT 0.3 mg/dL (0.1-0.2)
[2019-08-06 08:14] LABS: BILIRUBIN,INDIRECT 0.2 mg/dL (0.0-2.0); BILIRUBIN,TOTAL 0.5 mg/dL (0.2-1.0); TOTAL PROTEIN 6.6 g/dL (6.4-8.2)
[2019-08-06] MEDS: DOCUSATE 100 MG CAPSULE PO SCH ×2 (08:59→20:09)
[2019-08-06] MEDS: ALLOPURINOL 300 MG TABLET PO SCH (08:59)
[2019-08-06] MEDS: GABAPENTIN 300 MG CAPSULE PO SCH ×3 (08:59→20:09)
[2019-08-06] MEDS: ACETAMINOPHEN 325 MG TABLET PO PRN (08:59)
[2019-08-06] MEDS: CLOPIDOGREL 75 MG TABLET PO SCH (08:59)
[2019-08-06] MEDS: ENOXAPARIN 40 MG/0.4 ML SQ SCH (08:59)
[2019-08-06] MEDS: ASPIRIN 81 MG TABLET EC PO SCH (08:59)
[2019-08-06] MEDS ORDERED: PHARMACY MAY ADJ FOR RENAL FX MC PRN (09:00)
[2019-08-06] MEDS: MUPIROCIN OINT 2%, 22GM NAS SCH ×2 (09:00→21:13)
[2019-08-06] MEDS: AMIODARONE 200 MG TABLET PO SCH ×2 (10:07→20:09)
[2019-08-06 10:54] LABS: CULTURE INDICATED? YES; MICROSCOPIC INDICATED
[2019-08-06] MEDS: METOPROLOL TARTRATE 25 MG TAB PO SCH ×3 (11:30→23:56)
[2019-08-06 11:53] VITALS: BP 85/48
[2019-08-06 14:19] VITALS: BP 104/61
[2019-08-06 19:37] VITALS: BP 109/66
[2019-08-06] MEDS: ATORVASTATIN 80 MG TABLET PO SCH (20:08)
[2019-08-07] VITALS (7 sets, daily range): BP systolic 109–155; BP diastolic 7–78
[2019-08-07 05:45] LABS: ALBUMIN 1.9 g/dL (3.4-5.0); ANION GAP 10 mmol/L (5-15); CALCIUM 8.6 mg/dL (8.5-10.1); CHLORIDE 110 mmol/L (98-107)
[2019-08-07] MEDS: METOPROLOL TARTRATE 25 MG TAB PO SCH ×3 (05:48→20:19)
[2019-08-07 05:50] LABS: ALANINE AMINOTRANSFERASE 311 U/L (12-78); ALKALINE PHOSPHATASE 112 U/L (45-117); BILIRUBIN,TOTAL 0.6 mg/dL (0.2-1.0); CREATININE 2.41 mg/dL (0.7-1.3)
[2019-08-07 05:52] LABS: MEAN CORPUSCULAR HEMOGLOBIN 33.3 pg (27.5-34.5); MEAN CORPUSCULAR HGB CONC 32.9 g/dL (33.2-36.2); MEAN CORPUSCULAR VOLUME 101.3 fL (81-97); PLATELET COUNT 287 x10^3/uL (130-400); RED BLOOD COUNT 2.87 x10^6/uL (4.38-5.82); RED CELL DISTRIBUTION WIDTH 15.8 % (9.4-14.8)
[2019-08-07 06:22] LABS: BASOPHILS # (AUTO) 0.22 x10^3/uL (0-0.1); BASOPHILS % (AUTO) 1 % (0-1); EOSINOPHILS # (AUTO) 0.22 x10^3/uL (0-0.4); EOSINOPHILS % (AUTO) 1 % (1-7); LYMPHOCYTES # (AUTO) 1.69 x10^3/uL (1-3.4); LYMPHOCYTES % (AUTO) 11 % (22-44); MD SCAN; MONOCYTES % (AUTO) 9 % (2-9); NEUTROPHILS # (AUTO) 12.24 x10^3/uL (1.8-6.8); NEUTROPHILS % (AUTO) 78 % (42-75)
[2019-08-07] MEDS: INSULIN LISPRO 100 UNITS/ML, PEN SQ-INSULIN SCH ×4 (07:00→20:37)
[2019-08-07] MEDS: DOCUSATE 100 MG CAPSULE PO SCH ×2 (09:00→20:19)
[2019-08-07] MEDS: ENOXAPARIN 30 MG/0.3 ML SQ SCH (09:01)
[2019-08-07] MEDS: AMIODARONE 200 MG TABLET PO SCH ×2 (09:01→22:32)
[2019-08-07] MEDS: MUPIROCIN OINT 2%, 22GM NAS SCH (09:01)
[2019-08-07] MEDS: CLOPIDOGREL 75 MG TABLET PO SCH (09:02)
[2019-08-07] MEDS: GABAPENTIN 300 MG CAPSULE PO SCH ×2 (09:02→15:13)
[2019-08-07] MEDS: ALLOPURINOL 300 MG TABLET PO SCH (09:02)
[2019-08-07] MEDS: ASPIRIN 81 MG TABLET EC PO SCH (09:02)
[2019-08-07] MEDS ORDERED: SODIUM CHLORIDE 0.9% 1,000ML IV ONE (11:30)
[2019-08-07] MEDS ORDERED: PHARMACY MAY ADJ FOR RENAL FX MC PRN ×2 (14:00→17:00)
[2019-08-07] MEDS ORDERED: CEFTRIAXONE PMX 2GM/50ML 50 ML IV SCH (14:00)
[2019-08-07] MEDS: PIPERACILLIN/TAZO/PMX 2.25GM 50 ML IV SCH (16:52)
[2019-08-07] MEDS: LINEZOLID PMX 600MG/300ML 300 ML IV SCH (18:02)
[2019-08-07] MEDS: ALBUTEROL/IPRATROPIUM 2.5MG/0.5MG, 3 ML NPPB SCH (18:54)
[2019-08-07] MEDS ORDERED: ALBUTEROL/IPRATROPIUM 2.5MG/0.5MG, 3 ML ONE (18:59)
[2019-08-07] MEDS: ATORVASTATIN 80 MG TABLET PO SCH (20:19)
[2019-08-08 00:11] VITALS: BP 159/74
[2019-08-08] MEDS: PIPERACILLIN/TAZO/PMX 2.25GM 50 ML IV SCH ×2 (01:24→09:40)
[2019-08-08] MEDS: METOPROLOL TARTRATE 25 MG TAB PO SCH ×4 (02:20→20:56)
[2019-08-08 05:51] LABS: MEAN CORPUSCULAR HGB CONC 32.5 g/dL (33.2-36.2); MEAN CORPUSCULAR VOLUME 101.7 fL (81-97); MEAN PLATELET VOLUME 7.8 fL (7.4-10.4); PLATELET COUNT 308 x10^3/uL (130-400); RED BLOOD COUNT 2.82 x10^6/uL (4.38-5.82); RED CELL DISTRIBUTION WIDTH 16.2 % (9.4-14.8)
[2019-08-08] MEDS: GABAPENTIN 300 MG CAPSULE PO SCH ×2 (05:52→17:21)
[2019-08-08] MEDS: LINEZOLID PMX 600MG/300ML 300 ML IV SCH (05:55)
[2019-08-08 05:56] LABS: ALANINE AMINOTRANSFERASE 243 U/L (12-78); ALBUMIN 1.8 g/dL (3.4-5.0); ANION GAP 8 mmol/L (5-15); CALCIUM 8.4 mg/dL (8.5-10.1); CHLORIDE 111 mmol/L (98-107); CREATININE 2.52 mg/dL (0.7-1.3)
[2019-08-08 05:58] LABS: ALKALINE PHOSPHATASE 110 U/L (45-117); BILIRUBIN,TOTAL 0.7 mg/dL (0.2-1.0); TOTAL PROTEIN 7.1 g/dL (6.4-8.2)
[2019-08-08 06:17] LABS: MD YES
[2019-08-08 06:38] LABS: BANDS%(MANUAL) 1 % (0-7); EOS#(MANUAL) 0.39 x10^3/uL (0.0-0.4); EOS% (MANUAL) 2 % (1-7); LYMPH#(MANUAL) 1.17 x10^3/uL (1-3.4); LYMPHS% (MANUAL) 6 % (22-44); MONOS#(MANUAL) 1.17 x10^3/uL (0.3-2.7); MONOS% (MANUAL) 6 % (2-9); NRBC % (MANUAL) 1 % (0-1); SEG#(MANUAL) 16.58 x10^3/uL (1.8-6.8); SEGS% (MANUAL) 85 % (42-75)
[2019-08-08 06:39] LABS: <PLATELET ESTIMATE> ADEQUATE; <PLT MORPHOLOGY> NORMAL PLT MORPH; ANISOCYTOSIS 1+; POLYCHROMASIA 1+
[2019-08-08] MEDS: ALBUTEROL/IPRATROPIUM 2.5MG/0.5MG, 3 ML NPPB SCH ×4 (07:25→19:53)
[2019-08-08] MEDS: INSULIN LISPRO 100 UNITS/ML, PEN SQ-INSULIN SCH ×3 (07:45→18:00)
[2019-08-08 07:50] VITALS: BP 150/54
--- NOTE | 2019-08-08 09:05 | NUR ---
TUBE-FEED GOAL: JEVITY 1.2 @70ml/hour
[2019-08-08] MEDS: DOCUSATE 100 MG CAPSULE PO SCH ×2 (09:11→20:14)
[2019-08-08] MEDS: CLOPIDOGREL 75 MG TABLET PO SCH (09:40)
[2019-08-08] MEDS: ALLOPURINOL 300 MG TABLET PO SCH (09:40)
[2019-08-08] MEDS: AMIODARONE 200 MG TABLET PO SCH ×2 (09:40→20:56)
[2019-08-08] MEDS: ENOXAPARIN 30 MG/0.3 ML SQ SCH (09:41)
[2019-08-08] MEDS: ASPIRIN 81 MG TABLET EC PO SCH (09:41)
[2019-08-08 11:09] LABS: CLOSTRIDIUM DIFFICILE ANTIGEN POSITIVE; CLOSTRIDIUM DIFFICILE TOXIN POSITIVE (Negative)
[2019-08-08] MEDS: ACETAMINOPHEN 325 MG TABLET PO PRN (12:44)
[2019-08-08] MEDS: VANCOMYCIN 50 MG/ML ORAL SUSP PO SCH ×2 (12:57→17:21)
[2019-08-08] MEDS: LACTOBACILLUS 1GM/ PACKET NG SCH ×2 (15:51→21:49)
[2019-08-08] MEDS ORDERED: HEPARIN 5,000 UNITS/ML, 1ML IV ONE (19:00)
[2019-08-08] MEDS: HEPARIN 25,000 UNITS/250ML PMX 250 ML IV PRN (20:04)
[2019-08-08] MEDS: ATORVASTATIN 80 MG TABLET PO SCH (20:56)
[2019-08-08] MEDS: METRONIDAZOLE PMX 500MG/100ML 100 ML IV SCH (20:57)
[2019-08-09] MEDS ORDERED: OLANZAPINE 5 MG TABLET PO ONE
[2019-08-09] MEDS: INSULIN LISPRO 100 UNITS/ML, PEN SQ-INSULIN SCH ×4 (00:12→16:26)
[2019-08-09] MEDS: VANCOMYCIN 50 MG/ML ORAL SUSP PO SCH ×2 (00:12→06:14)
[2019-08-09] MEDS: METOPROLOL TARTRATE 25 MG TAB PO SCH ×4 (02:34→20:43)
[2019-08-09] MEDS: HEPARIN 5,000 UNITS/ML, 1ML IV PRN ×2 (02:50→18:02)
[2019-08-09] MEDS: METRONIDAZOLE PMX 500MG/100ML 100 ML IV SCH (04:33)
[2019-08-09 04:48] VITALS: BP 123/80
[2019-08-09] MEDS: GABAPENTIN 300 MG CAPSULE PO SCH ×2 (06:14→15:41)
[2019-08-09] MEDS: ALBUTEROL/IPRATROPIUM 2.5MG/0.5MG, 3 ML NPPB SCH (06:54)
[2019-08-09] MEDS: DOCUSATE 100 MG CAPSULE PO SCH ×2 (06:59→20:33)
[2019-08-09 08:05] LABS: MEAN CORPUSCULAR HEMOGLOBIN 33.2 pg (27.5-34.5); MEAN CORPUSCULAR HGB CONC 32.9 g/dL (33.2-36.2); MEAN CORPUSCULAR VOLUME 101.1 fL (81-97); MEAN PLATELET VOLUME 8.2 fL (7.4-10.4); PLATELET COUNT 298 x10^3/uL (130-400); RED BLOOD COUNT 2.85 x10^6/uL (4.38-5.82); RED CELL DISTRIBUTION WIDTH 16.6 % (9.4-14.8)
[2019-08-09 08:13] LABS: ALANINE AMINOTRANSFERASE 176 U/L (12-78); ALBUMIN 1.7 g/dL (3.4-5.0); ANION GAP 8 mmol/L (5-15); CALCIUM 8.4 mg/dL (8.5-10.1); CHLORIDE 113 mmol/L (98-107); CREATININE 2.35 mg/dL (0.7-1.3)
[2019-08-09 08:15] LABS: ALKALINE PHOSPHATASE 108 U/L (45-117); BILIRUBIN,TOTAL 0.5 mg/dL (0.2-1.0); TOTAL PROTEIN 6.9 g/dL (6.4-8.2)
[2019-08-09 08:23] LABS: MD YES
[2019-08-09 08:25] LABS: <PLATELET ESTIMATE> ADEQUATE; <PLT MORPHOLOGY> NORMAL PLT MORPH; ANISOCYTOSIS 1+; BASOS#(MANUAL) 0.19 x10^3/uL (0-0.1); BASOS% (MANUAL) 1 % (0-1); EOS#(MANUAL) 0.58 x10^3/uL (0.0-0.4); EOS% (MANUAL) 3 % (1-7); LYMPH#(MANUAL) 1.92 x10^3/uL (1-3.4); LYMPHS% (MANUAL) 10 % (22-44); METAMYELOCYTES# (MANUAL) 0.19 x10^3/uL (0-0); METAMYELOCYTES% (MANUAL) 1 % (0-1); MONOS#(MANUAL) 0.96 x10^3/uL (0.3-2.7); MONOS% (MANUAL) 5 % (2-9); POLYCHROMASIA 1+; SEG#(MANUAL) 15.36 x10^3/uL (1.8-6.8); SEGS% (MANUAL) 80 % (42-75)
[2019-08-09] MEDS: AMIODARONE 200 MG TABLET PO SCH ×2 (09:29→21:13)
[2019-08-09] MEDS: ASPIRIN 81 MG TABLET EC PO SCH (09:29)
[2019-08-09] MEDS: LACTOBACILLUS 1GM/ PACKET NG SCH ×3 (09:29→21:14)
[2019-08-09] MEDS: CLOPIDOGREL 75 MG TABLET PO SCH (09:29)
[2019-08-09] MEDS: ALLOPURINOL 300 MG TABLET PO SCH (09:30)
[2019-08-09] MEDS ORDERED: OLANZAPINE 2.5 MG TABLET PO ONE (09:30)
[2019-08-09] MEDS ORDERED: ALBUTEROL/IPRATROPIUM 2.5MG/0.5MG, 3 ML NPPB PRN (10:00)
[2019-08-09] MEDS: FIDAXOMICIN 200 MG TABLET NG SCH (21:14)
[2019-08-09] MEDS: QUETIAPINE 25MG TABLET PO SCH (21:14)
[2019-08-09] MEDS: ATORVASTATIN 80 MG TABLET PO SCH (21:14)
[2019-08-09] MEDS: HEPARIN 25,000 UNITS/250ML PMX 250 ML IV PRN (21:45)
[2019-08-10] MEDS ORDERED: OLANZAPINE 5 MG TABLET ONE ×2 (00:17→00:18)
[2019-08-10] MEDS: HEPARIN 5,000 UNITS/ML, 1ML IV PRN ×3 (01:56→17:45)
[2019-08-10] MEDS: METOPROLOL TARTRATE 25 MG TAB PO SCH ×4 (01:59→23:00)
[2019-08-10 04:00] VITALS: BP 158/97
[2019-08-10 05:14] LABS: ALANINE AMINOTRANSFERASE 126 U/L (12-78); ALBUMIN 1.8 g/dL (3.4-5.0); ANION GAP 8 mmol/L (5-15); CALCIUM 8.7 mg/dL (8.5-10.1); CHLORIDE 116 mmol/L (98-107)
[2019-08-10 05:16] LABS: ALKALINE PHOSPHATASE 98 U/L (45-117); BILIRUBIN,TOTAL 0.6 mg/dL (0.2-1.0)
[2019-08-10] MEDS: GABAPENTIN 300 MG CAPSULE PO SCH ×2 (06:09→15:27)
[2019-08-10] MEDS: INSULIN LISPRO 100 UNITS/ML, PEN SQ-INSULIN SCH ×4 (06:35→18:00)
[2019-08-10] MEDS: DOCUSATE 100 MG CAPSULE PO SCH ×2 (08:05→23:00)
[2019-08-10 08:19] LABS: MEAN CORPUSCULAR HGB CONC 32.6 g/dL (33.2-36.2); MEAN CORPUSCULAR VOLUME 101.5 fL (81-97); MEAN PLATELET VOLUME 8.1 fL (7.4-10.4); PLATELET COUNT 354 x10^3/uL (130-400)
[2019-08-10] MEDS: CLOPIDOGREL 75 MG TABLET PO SCH (08:24)
[2019-08-10] MEDS: ASPIRIN 81 MG TABLET EC PO SCH (08:24)
[2019-08-10] MEDS: FIDAXOMICIN 200 MG TABLET NG SCH (08:24)
[2019-08-10] MEDS: AMIODARONE 200 MG TABLET PO SCH (08:24)
[2019-08-10] MEDS: ACETAMINOPHEN 325 MG TABLET PO PRN ×2 (08:24→14:06)
[2019-08-10] MEDS: QUETIAPINE 25MG TABLET PO SCH ×2 (08:25→21:00)
[2019-08-10] MEDS: ALLOPURINOL 300 MG TABLET PO SCH (08:25)
[2019-08-10] MEDS: LACTOBACILLUS 1GM/ PACKET NG SCH ×2 (08:26→15:27)
[2019-08-10 08:44] LABS: BASOPHILS # (AUTO) 0.13 x10^3/uL (0-0.1); BASOPHILS % (AUTO) 1 % (0-1); EOSINOPHILS # (AUTO) 0.37 x10^3/uL (0-0.4); EOSINOPHILS % (AUTO) 2 % (1-7); LYMPHOCYTES # (AUTO) 2.58 x10^3/uL (1-3.4); LYMPHOCYTES % (AUTO) 14 % (22-44); MD SCAN; MONOCYTES # (AUTO) 1.42 x10^3/uL (0.2-0.8); MONOCYTES % (AUTO) 8 % (2-9); NEUTROPHILS # (AUTO) 14.57 x10^3/uL (1.8-6.8); NEUTROPHILS % (AUTO) 76 % (42-75)
[2019-08-10] MEDS ORDERED: FILTER 0.22 MICRON IV SCH (09:00)
[2019-08-10] MEDS: AMIODARONE 450 MG in DEXTROSE 5% 241 ML IV PRN ×2 (09:24→17:21)
[2019-08-10] MEDS ORDERED: KETOROLAC 30 MG/1 ML IM PRN (14:00)
[2019-08-10] MEDS: HEPARIN 25,000 UNITS/250ML PMX 250 ML IV PRN (17:26)
[2019-08-10] MEDS ORDERED: DEXMEDETOMIDINE 400 MCG in SODIUM CHLORIDE 0.9% 96 ML IV PRN (22:00)
[2019-08-10] MEDS ORDERED: ZIPRASIDONE 20 MG INJ IM ONE (22:00)
[2019-08-10] MEDS ORDERED: THIAMINE 200 MG in SODIUM CHLORIDE 0.9% 50 ML IV ONE (22:00)
[2019-08-10] MEDS ORDERED: DEXMEDETOMIDINE 200 MCG in SODIUM CHLORIDE 0.9% 48 ML IV PRN (22:00)
[2019-08-10] MEDS ORDERED: PANTOPRAZOLE 80 MG in SODIUM CHLORIDE 0.9% 50 ML IV ONE (23:30)
[2019-08-10] MEDS ORDERED: PANTOPRAZOLE 80 MG in SODIUM CHLORIDE 0.9% 100 ML IV SCH (23:30)
[2019-08-10] MEDS ORDERED: NOREPINEPHRINE 8 MG in SODIUM CHLORIDE 0.9% 242 ML IV PRN (23:30)
[2019-08-10 23:39] LABS: MEAN CORPUSCULAR HEMOGLOBIN 33.7 pg (27.5-34.5); MEAN CORPUSCULAR VOLUME 105.4 fL (81-97); MEAN PLATELET VOLUME 7.6 fL (7.4-10.4); PLATELET COUNT 360 x10^3/uL (130-400); RED BLOOD COUNT 1.82 x10^6/uL (4.38-5.82); RED CELL DISTRIBUTION WIDTH 17.7 % (9.4-14.8)
[2019-08-10] MEDS ORDERED: ATROPINE SYRINGE 0.1 MG/ML, 10ML ONE (23:40)
[2019-08-10 23:42] LABS: ANION GAP 12 mmol/L (5-15); CALCIUM 8.3 mg/dL (8.5-10.1); CHLORIDE 116 mmol/L (98-107); CREATININE 2.47 mg/dL (0.7-1.3)
[2019-08-10 23:48] LABS: MD YES
[2019-08-10 23:55] LABS: BAND#(MANUAL) 1.44 x10^3/uL; BANDS%(MANUAL) 7 % (0-7); EOS#(MANUAL) 0.21 x10^3/uL (0.0-0.4); EOS% (MANUAL) 1 % (1-7); LYMPH#(MANUAL) 4.31 x10^3/uL (1-3.4); LYMPHS% (MANUAL) 21 % (22-44); METAMYELOCYTES# (MANUAL) 0.21 x10^3/uL (0-0); METAMYELOCYTES% (MANUAL) 1 % (0-1); MONOS#(MANUAL) 0.21 x10^3/uL (0.3-2.7); MONOS% (MANUAL) 1 % (2-9); NRBC % (MANUAL) 1 % (0-1); SEG#(MANUAL) 14.15 x10^3/uL (1.8-6.8); SEGS% (MANUAL) 69 % (42-75)
[2019-08-10 23:56] LABS: ANISOCYTOSIS 1+; HYPOCHROMIA 1+; POLYCHROMASIA 1+
[2019-08-10 23:57] LABS: OVALOCYTES 1+
[2019-08-10 23:58] LABS: <PLATELET ESTIMATE> ADEQUATE; <PLT MORPHOLOGY> NORMAL PLT MORPH
[2019-08-11 00:03] LABS: INTERNATIONAL NORMALIZED RATIO 1.88 (0.93-1.1); PROTHROMBIN TIME 20.1 Seconds (9.6-11.5)
[2019-08-11 00:10] LABS: PARTIAL THROMBOPLASTIN TIME > 153 Seconds (25-31)
[2019-08-11] MEDS ORDERED: EPINEPHRINE SYRINGE 0.1 MG/ML, 10ML ONE (00:10)
[2019-08-11 00:14] LABS: OCCULT BLOOD POSITIVE (NEGATIVE)
[2019-08-11] MEDS ORDERED: CODE BLUE RESPONSE XX ONE (00:30)
[2019-08-11] MEDS ORDERED: THIAMINE 100MG TABLET PO SCH (09:00)
== END 2019-08-11 02:23 | disposition expired | DRG 853 ==
LOC: MERGE 20:37 → ED 21:41 → EDIP 21:45 → 5SO 22:39 → CSU 07-31 20:35 → 5SO 08-06 13:55 → CCU 08-08 11:54 → ICU 08-08 19:17
PROVIDERS: ADMIT Internal Medicine; ATTEND Internal Medicine
PROC: 5A2204Z Restoration of Cardiac Rhythm, Single (ICD-10-PCS; principal; 2019-07-29)
PROC: 5A09357 Assistance with Respiratory Ventilation, Less than 24 Consecutive Hours, Continuous Positive Airway Pressure (ICD-10-PCS; 2019-07-29)
PROC: 5A12012 Performance of Cardiac Output, Single, Manual (ICD-10-PCS; 2019-07-29)
PROC: 0T9B70Z Drainage of Bladder with Drainage Device, Via Natural or Artificial Opening (ICD-10-PCS; 2019-07-30)
PROC: 5A1935Z Respiratory Ventilation, Less than 24 Consecutive Hours (ICD-10-PCS; 2019-07-31)
PROC: 0BH17EZ Insertion of Endotracheal Airway into Trachea, Via Natural or Artificial Opening (ICD-10-PCS; 2019-07-31)
PROC: 4A023N7 Measurement of Cardiac Sampling and Pressure, Left Heart, Percutaneous Approach (ICD-10-PCS; 2019-07-31)
PROC: B211YZZ Fluoroscopy of Multiple Coronary Arteries using Other Contrast (ICD-10-PCS; 2019-07-31)
PROC: B215YZZ Fluoroscopy of Left Heart using Other Contrast (ICD-10-PCS; 2019-07-31)
PROC: 02100Z9 Bypass Coronary Artery, One Artery from Left Internal Mammary, Open Approach (ICD-10-PCS; 2019-08-02)
PROC: 021209W Bypass Coronary Artery, Three Arteries from Aorta with Autologous Venous Tissue, Open Approach (ICD-10-PCS; 2019-08-02)
PROC: 06BP4ZZ Excision of Right Saphenous Vein, Percutaneous Endoscopic Approach (ICD-10-PCS; 2019-08-02)
PROC: 5A1221Z Performance of Cardiac Output, Continuous (ICD-10-PCS; 2019-08-02)
PROC: 03HY32Z Insertion of Monitoring Device into Upper Artery, Percutaneous Approach (ICD-10-PCS; 2019-08-02)
PROC: 02HV33Z Insertion of Infusion Device into Superior Vena Cava, Percutaneous Approach (ICD-10-PCS; 2019-08-02)
PROC: B548ZZA Ultrasonography of Superior Vena Cava, Guidance (ICD-10-PCS; 2019-08-02)
PROC: 30233N1 Transfusion of Nonautologous Red Blood Cells into Peripheral Vein, Percutaneous Approach (ICD-10-PCS; 2019-08-02)
PROC: 5A09357 Assistance with Respiratory Ventilation, Less than 24 Consecutive Hours, Continuous Positive Airway Pressure (ICD-10-PCS; 2019-08-04)
DX: A41.9 Sepsis, unspecified organism (principal); J96.01 Acute respiratory failure with hypoxia; I21.4 Non-ST elevation (NSTEMI) myocardial infarction; I50.43 Acute on chronic combined systolic (congestive) and diastolic (congestive) heart failure; J18.9 Pneumonia, unspecified organism; G93.41 Metabolic encephalopathy; I49.02 Ventricular flutter; N17.0 Acute kidney failure with tubular necrosis; I48.20 Chronic atrial fibrillation, unspecified; D68.59 Other primary thrombophilia; A04.72 Enterocolitis due to Clostridium difficile, not specified as recurrent; I13.0 Hypertensive heart and chronic kidney disease with heart failure and stage 1 through stage 4 chronic kidney disease, or unspecified chronic kidney disease; I47.2 Ventricular tachycardia; N39.0 Urinary tract infection, site not specified; Z99.11 Dependence on respirator [ventilator] status; R57.0 Cardiogenic shock; I49.01 Ventricular fibrillation; I16.0 Hypertensive urgency; I27.20 Pulmonary hypertension, unspecified; Z88.6 Allergy status to analgesic agent; Z88.8 Allergy status to other drugs, medicaments and biological substances; D50.9 Iron deficiency anemia, unspecified; D75.89 Other specified diseases of blood and blood-forming organs; E11.22 Type 2 diabetes mellitus with diabetic chronic kidney disease; E11.40 Type 2 diabetes mellitus with diabetic neuropathy, unspecified; E53.8 Deficiency of other specified B group vitamins; E78.5 Hyperlipidemia, unspecified; E83.42 Hypomagnesemia; E87.6 Hypokalemia; F03.90 Unspecified dementia, unspecified severity, without behavioral disturbance, psychotic disturbance, mood disturbance, and anxiety; G47.33 Obstructive sleep apnea (adult) (pediatric); G89.18 Other acute postprocedural pain; H91.90 Unspecified hearing loss, unspecified ear; I08.1 Rheumatic disorders of both mitral and tricuspid valves; I25.118 Atherosclerotic heart disease of native coronary artery with other forms of angina pectoris; I25.5 Ischemic cardiomyopathy; N18.9 Chronic kidney disease, unspecified; Z79.01 Long term (current) use of anticoagulants; Z79.4 Long term (current) use of insulin; Z80.9 Family history of malignant neoplasm, unspecified; Z82.49 Family history of ischemic heart disease and other diseases of the circulatory system; Z87.891 Personal history of nicotine dependence; Z95.5 Presence of coronary angioplasty implant and graft; Z96.653 Presence of artificial knee joint, bilateral
CPT/HCPCS: 36415; 36600; 74018; 84145; 93458; 96365; 96367; 96375; 99291; J3370; J3475; J3490; J7620; S0017; 70450; 70551; 71045; 76770; 80048; 80053; 80076; 81001; 82040; 82140; 82272; 82330; 82607; 82800; 82803; 82810; 82947; 82962; 83036; 83540; 83550; 83605; 83735; 83880; 84100; 84132; 84295; 84436; 84443; 84478; 84484; 85014; 85018; 85025; 85049; 85347; 85520; 85610; 85730; 86850; 86900; 86923; 87040; 87070; 87081; 87086; 87205; 87324; 92950; 93005; 93306; 93312; 93321; 93325; 93880; 93970; 94002; 94003; 94640; 94660; 94667; 99156; C1769; C1894; G0378; J0171; J0456; J0583; J0696; J0697; J1265; J1644; J1650; J1815; J1885; J1940; J2020; J2250; J2405; J2543; J2704; J2720; J3010; J3480; J3486; J7060; P9045; P9047; C1751; C1760; J0282; J0330; J1250; J2270; J2370; J2440; J2930; J7030; J7050; P9016; Q9967